=== PATIENT | male | born 1935 | race Caucasian/White ===

== ENCOUNTER → 2017-07-04 | Outpatient (CLI) | payer OTHER ==
[~2017-07-04] MED LIST: ASPI-232; ATEN50TA8 PO; DOXA4TAB2 PO; FERR324T PO; PROTONIX; WARF1TAB PO; ZOCOR
[2017-07-04 14:10] LABS: HEMATOCRIT 43.8 % (42-52); MEAN CELL VOLUME 94.6 fL (80-100); MEAN CORPUSCULAR HEMOGLOBIN 31.1 pg (25-34); MEAN CORPUSCULAR HGB CONC 32.9 g/dl (32-36); MEAN PLATELET VOLUME 12.6 fL (7.4-10.4); PLATELET COUNT 128 K/uL (130-400); RED BLOOD COUNT 4.63 M/uL (4.7-6.1); WHITE BLOOD COUNT 8.09 K/uL (4.8-10.8)
[2017-07-04 14:48] LABS: ALT/SGPT 24 U/L (12-78); AST/SGOT 13 U/L (15-37); BLOOD UREA NITROGEN 12 mg/dl (7-18); BUN/CREATININE RATIO 9.4 (10-20); CALCIUM 8.9 mg/dl (8.5-10.1); CARBON DIOXIDE 29 mmol/L (21-32); CHLORIDE 104 mmol/L (98-107); CREATININE 1.25 mg/dl (0.60-1.40); GLUCOSE 105 mg/dl (70-99); HDL CHOLESTEROL 45 mg/dl; POTASSIUM 4.3 mmol/L (3.5-5.1); SODIUM 138 mmol/L (136-145)
[2017-07-04 14:51] LABS: ALB/GLOB RATIO 1.1 (0.9-2); ALKALINE PHOSPHATASE 72 U/L (45-117); CHOLESTEROL 134 mg/dl (0-200); LDL CHOLESTEROL CALCULATED 39 mg/dl; TRIGLYCERIDES 249 mg/dl (0-150); VERY LOW DENSITY LIPOPROT CALC 50 mg/dl
[2017-07-04 15:00] LABS: ANISOCYTOSIS PRESENT; BASO ABS # 0.07 K/uL (0-0.2); BASOPHIL % 0.9 % (0-2); COMPLETE YES; ECHINOCYTES 1+; EOSINOPHIL % 1.7 %; LYMPH ABS # 0.78 K/uL (1.2-3.4); LYMPHOCYTE % 9.6 %; NEUTROPHILS % 69.6 %; PLT ESTIMATE DECREASED; VARIANT LYM ABS # 1.12 K/uL; VARIANT LYMPHOCYTE % 13.9 %
== END | disposition home or self-care (01) ==
LOC: C.LABBC 10:37
PROVIDERS: ATTEND Internal Medicine
DX: D69.6 Thrombocytopenia, unspecified (principal)

== ENCOUNTER → 2017-08-03 | Outpatient (CLI) | payer OTHER ==
--- NOTE | 2017-08-03 09:42 | DIAGNOSTIC IMAGING REPORT ---
DUPLEX RENAL ARTERY CLINICAL HISTORY: I10 HypertensionRule out renal artery stenosis E X0D E [id number] TECHNIQUE: Ultrasound COMPARISON STUDY: None FINDINGS: Prior left effectively. Right kidney demonstrates unremarkable velocity characteristics as well as vascular impedance characteristics. There is no significant renal arterial stenosis. There are several cysts measuring up to 5 cm involving the right kidney. Has a maximum dimension of 14 cm. No evidence for hydronephrosis. IMPRESSION: 1. Post left nephrectomy. 2. No significant stenosis of the right renal arterial vasculature. 3. Several right renal cyst. The above report was generated using voice recognition software. It may contain grammatical, syntax or spelling errors. Electronically signed by: Denny Peralta M.D. 08/03/2017 9:40 AM Dictated Date/Time: 08/03/2017 9:34 AM
[2017-08-03 14:01] LABS: BLOOD UREA NITROGEN 13 mg/dl (7-18); CALCIUM 8.5 mg/dl (8.5-10.1); CARBON DIOXIDE 31 mmol/L (21-32); CREATININE 1.14 mg/dl (0.60-1.40); GLUCOSE 112 mg/dl (70-99); POTASSIUM 3.8 mmol/L (3.5-5.1); SODIUM 140 mmol/L (136-145)
== END | disposition home or self-care (01) ==
LOC: C.ULTRBC 09:00
PROVIDERS: ATTEND Internal Medicine
DX: I10 Essential (primary) hypertension (principal)

== ENCOUNTER → 2017-09-23 | Outpatient (CLI) | payer OTHER ==
[2017-09-23 13:51] LABS: BLOOD UREA NITROGEN 18 mg/dl (7-18); CALCIUM 8.9 mg/dl (8.5-10.1); CARBON DIOXIDE 27 mmol/L (21-32); CREATININE 1.39 mg/dl (0.60-1.40); GLUCOSE 96 mg/dl (70-99); PHOSPHORUS 3.4 mg/dl (2.5-4.9); POTASSIUM 4.6 mmol/L (3.5-5.1); SODIUM 138 mmol/L (136-145)
== END | disposition home or self-care (01) ==
LOC: C.LABBC 09:29
PROVIDERS: ATTEND Internal Medicine Nephrology
DX: I10 Essential (primary) hypertension (principal)

== ENCOUNTER 2020-05-22 18:04 | Inpatient (IN) ==
[2020-05-22] MEDS ORDERED: MoRPHine SULFATE 2 MG/ML CARP IV PRN ×2 (18:46→22:14)
[2020-05-22] MEDS ORDERED: MoRPHine SULFATE 4 MG/ML 1 ML CARP\\VIAL IV PRN (18:46)
--- NOTE | 2020-05-22 18:53 | Emergency Department Note ---
Impression & Plan Closed hip fracture, Hip pain, High serum chloride, Anemia ED Provider Note NAME: CHARLI CAMPA AGE: 84 SEX: M : 1935 ARRIVES VIA: Walk-In INFORMANT: Patient ED PROVIDER(S): Vic Arredondo DO CHIEF COMPLAINT: Left hip pain. HPI: Patient is an 84-year-old male who presents to ER following mechanical fall which occurred 9 days ago. He was walking and he slipped and fell onto his left hip. He did not his head or neck. He denies any other complaints. Pain is an 8 out of 10. Is worse with movement of the hip. He is fairly comfortable currently. He followed up with his PCP and had x-rays as an outpatient as he really has not been walking. X-rays show left femoral neck fracture. Patient was referred in the ER for further work-up. He has followed up with Oracio watson before in the past for knee replacement. Denies any tingling or numbness. No headache, cough runny nose neck pain. No chest pain shortness of breath nausea vomiting or diarrhea. ROS: See above HPI for pertinent positives & negatives. A total of 10 systems reviewed and were otherwise negative. PAST MEDICAL HISTORY:See Below PAST SURGICAL HISTORY:See Below FAMILY HISTORY:See Below SOCIAL HISTORY:See Below HOME MEDICATIONS:See Below ALLERGIES:See Below VITALS:See Below PHYSICAL EXAMINATION: GENERAL: Sitting up in bed, alert, well appearing, well nourished, no distress, non-toxic EYE EXAM: normal conjunctiva. OROPHARYNX: no exudate, no erythema, lips, buccal mucosa, and tongue normal and mucous membranes are moist NECK: supple, no nuchal rigidity, no adenopathy, non-tender LUNGS: Clear to auscultation. Normal chest wall mechanics HEART: no murmurs, S1 normal and S2 normal ABDOMEN: abdomen soft, non-tender, normo-active bowel sounds, no masses, no rebound or guarding. BACK: Back is symmetrical on inspection and there is no deformity, no midline tenderness, no CVA tenderness. SKIN: no rashes and no bruising UPPER EXTREMITIES: upper extremities are grossly normal. LOWER EXTREMITIES: Flexion-extension of the right hip, knee, ankle, and EHL intact. DP and PT bilaterally are intact 2 out of 4. Tenderness on palpation of left proximal hip. No tenderness on palpation of mid to distal femur, knee, tib-fib ankle or foot. NEURO EXAM: Normal sensorium, cranial nerves II-XII grossly intact, normal speech, no gross weakness of arms, no gross weakness of legs. MEDICAL DECISION MAKING: Patient is a 4-year-old male that presents ER following mechanical fall about 9 days ago. Denies any head or neck pain. Has been unable to walk since then using a walker and toe-touch on the left. IV was established blood work was obtained. X-rays were reviewed as an outpatient which showed a left femoral neck fracture. Labs show no significant leukocytosis and a mild anemia 12. INR was unremarkable. BMP with a high serum chloride. Discussed with Dr. Benito from orthopedics. He requested rapid Covid testing for possible OR tomorrow. Discussed with Dr. Narayanan from the hospitalist will evaluate the patient. He was ordered morphine 2 mg and 4 mg as needed. Triage Nursing notes reviewed. Prior medical records reviewed Vital Signs: reviewed and remarkable for no significant abnormalities Differential diagnosis: Fracture, subluxation, dislocation, contusion, ligamentous injury, neurovascular, compartment syndrome, rhabdomyolysis, as well as other pathologies. ER treatment provided: See below Diagnostics interpreted by me: ECG: Sinus rhythm rate of 75 Normal axis No PVCs Normal QTC No significant change from previous 2007 Cardiac Monitoring: An order was placed for continuous cardiac monitoring. The monitor shows a rate of 80 with sinus rhythm. Laboratory studies: As stated above and show below. Imaging studies: Trays were reviewed as an outpatient which showed a left femoral neck fracture Consultation(s): Discussed with Dr. Narayanan and Dr. Sharath Benito as stated above in [facility] ED COURSE: Procedures: none Critical Care: None Past Med/Surg History Medical History (Updated 05/22/20 @ 20:02 by Vic Arredondo DO) Acquired solitary kidney Arthritis, multiple joint involvement Benign prostatic hyperplasia Chronic kidney disease, stage 3a Hyperlipidemia Hypertension Left knee DJD Nerve sheath tumor Surgical History History of appendectomy History of colonoscopy History of left nephrectomy History of transurethral resection of prostate S/p nephrectomy Status post biopsy of skin Status post right knee replacement Family History Father Atherosclerosis Mother Breast cancer Unknown Coronary heart disease Social History Smoking Status: Never smoker Preferred Language: Pashto Communication Ability: Effective Visual Impairment: Limited Hearing Ability: Normal 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 Feels Safe at Home: Yes Allergies Allergies Allergy/AdvReac Type Severity Reaction Status Date / Time Sulfa (Sulfonamide Allergy Severe SKIN Verified 05/22/20 19:49 Antibiotics) NECROSIS TO SULFA OINTMENT Home Meds Home Medications Medication Instructions Recorded Confirmed aspirin 81 mg tablet 81 mg PO DAILY tab 04/17/19 05/22/20 acetaminophen 650 mg 650 mg PO TID tab 05/22/20 05/22/20 tablet,extended release aspirin [Aspirin Low Dose] 81 mg PO QAM 05/22/20 05/22/20 simvastatin 40 mg PO HS 05/22/20 05/22/20 Previous Rx's Medication Instructions Recorded doxazosin 4 mg tablet 4 mg PO DAILY #90 tab 09/25/19 carvedilol 12.5 mg tablet 12.5 mg PO BID #180 tab 12/27/19 telmisartan 80 mg tablet 80 mg PO DAILY #90 tab 12/31/19 diazepam 10 mg tablet 10 mg PO DAILY PRN #30 tab 03/07/20 Results & Data (ED) Vital Signs Vital Signs - 24 hr 05/22/20 18:13 Temperature 37.1 C Temperature Source Oral Pulse Rate 83 Respiratory Rate 18 Respiratory Effort / Characteristics Non-Labored Spontaneous Respiratory Depth Normal Respiratory Pattern Regular Blood Pressure 125/83 Blood Pressure Mean 97 Blood Pressure Position Sitting Pulse Oximetry 96 Oxygen Delivery Method Room Air Sepsis Recent Fever Within 48 Hours No Sepsis New/Unexplained Change in Mental Status N/A Sepsis Action Taken by Nursing No Action Required Laboratory Data Result diagrams: 05/22/20 19:07 05/22/20 19:07 Lab Results 05/22/20 05/22/20 05/22/20 Range/Units 19:07 19:07 19:07 WBC 8.43 (4.8-10.8) K/uL RBC 3.89 L (4.7-6.1) M/uL Hgb 12.3 L (14.0-18.0) g/dL Hct 37.7 L (42-52) % MCV 96.9 (80-100) fL MCH 31.6 (25-34) pg MCHC 32.6 (32-36) g/dL RDW Std Deviation 51.7 H (36.4-46.3) fL RDW Coeff of Lauren 14.6 H (11.5-14.5) % Plt Count 130 (130-400) K/uL MPV 11.8 H (7.4-10.4) fL Immature Gran % (Auto) 0.2 % Neut % (Auto) 66.2 % Lymph % (Auto) 23.7 % [place] % (Auto) 8.4 % Eos % (Auto) 1.1 % Baso % (Auto) 0.4 % Neut # (Auto) 5.58 (1.4-6.5) K/uL Lymph # (Auto) 2.00 (1.2-3.4) K/uL [place] # (Auto) 0.71 H (0.11-0.59) K/uL Eos # (Auto) 0.09 (0-0.5) K/uL Baso # (Auto) 0.03 (0-0.2) K/uL Immature Gran # (Auto) 0.02 (0.00-0.02) K/uL PT 10.9 (9.0-12.0) Seconds INR 1.0 (0.9-1.1) APTT 26.8 (21.0-31.0) Seconds PTT Ratio 1.0 Sodium 140 (136-145) mmol/L Potassium 4.4 (3.5-5.1) mmol/L Chloride 109 H (98-107) mmol/L Carbon Dioxide 24 (21-32) mmol/L Anion Gap 7.0 (3-11) BUN 29 H (7-18) mg/dl Creatinine 1.17 (0.6-1.4) mg/dl Est Cr Clr Drug Dosing 43.8 ml/min Est GFR ( Amer) 65.0 Est GFR (Non-Af Amer) 56.1 BUN/Creatinine Ratio 24.7 H (10-20) Glucose 93 (70-99) mg/dl Calcium 8.7 (8.5-10.1) mg/dl Discharge Plan Visit Data Chief Complaint: Hip Pain Stated Complaint: LEFT HIP FRACTURE ED Provider: Vic Arredondo Discharge Problem: Closed hip fracture, Hip pain, High serum chloride, Anemia Forms [facility] Pres[facility] Prescriptions: No Action doxazosin 4 mg tablet 4 mg PO DAILY Qty: 90 RF: 3 carvedilol 12.5 mg tablet 12.5 mg PO BID Qty: 180 RF: 3 telmisartan 80 mg tablet 80 mg PO DAILY Qty: 90 RF: 3 diazepam 10 mg tablet 10 mg PO DAILY PRN (Reason: muscle spasm) Qty: 30 RF: 0 aspirin 81 mg tablet 81 mg PO DAILY RF: 0 acetaminophen [Tylenol Arthritis Pain] 650 mg tablet extended release 650 mg PO TID RF: 0 simvastatin 40 mg tablet 40 mg PO HS RF: 0 aspirin [Aspirin Low Dose] 81 mg Tablet,Delayed Release (Dr/Ec) 81 mg PO QAM RF: 0 Discharge Problem: Closed hip fracture Qualifiers: Encounter type: initial encounter Laterality: left Qualified Code(s): S72.002A - Fracture of unspecified part of neck of left femur, initial encounter for c losed fracture Anemia Qualifiers: Anemia type: unspecified type Qualified Code(s): D64.9 - Anemia, unspecified
[2020-05-22 19:21] LABS: Basophils # (auto) 0.03 K/uL (0-0.2); Basophils % (auto) 0.4 %; Eosinophils # (auto) 0.09 K/uL (0-0.5); Eosinophils % (auto) 1.1 %; Hematocrit (blood only) 37.7 % (42-52); Hemoglobin 12.3 g/dL (14.0-18.0); Immature Granulocytes # (auto) 0.02 K/uL (0.00-0.02); Immature Granulocytes % (auto) 0.2 %; Lymphocytes % (auto) 23.7 %; Mean Corpuscular Hemoglobin 31.6 pg (25-34); Mean Corpuscular Hgb Conc 32.6 g/dL (32-36); Mean Corpuscular Volume 96.9 fL (80-100); Mean Platelet Volume 11.8 fL (7.4-10.4); Monocytes # (auto) 0.71 K/uL (0.11-0.59); Monocytes % (auto) 8.4 %; Neutrophils # (auto) 5.58 K/uL (1.4-6.5); Neutrophils % (auto) 66.2 %; Platelet Count 130 K/uL (130-400); RDW Coefficient of Variation 14.6 % (11.5-14.5); RDW Standard Deviation 51.7 fL (36.4-46.3); Red Blood Count 3.89 M/uL (4.7-6.1); White Blood Count 8.43 K/uL (4.8-10.8)
[2020-05-22 19:33] LABS: Partial Thromboplastin Time 26.8 Seconds (21.0-31.0); Prothrombin Time 10.9 Seconds (9.0-12.0)
[2020-05-22 19:38] LABS: BUN Creatinine Ratio 24.7 (10-20); Calcium 8.7 mg/dl (8.5-10.1); Creatinine Clr Calc Pharmacy 43.8 ml/min; Est GFR (Non-African American) 56.1; Potassium 4.4 mmol/L (3.5-5.1)
--- NOTE | 2020-05-22 20:05 | History & Physical Report ---
Date of Service May 22, 2020 Assessment & Plan (1) Closed hip fracture: 84yo C male s/p mechanical fall 9 days ago resulting in impacted left femoral neck fracture. Patient NV intact, pain is well controlled at present. Patient with no active cardiac disease, no history of CHF or arrhythmia. He has adequate functional status and able to perform 4 METS of activity without difficulty. No prior complications with surgery or anesthesia. Per RSRI criteria patient is medically optimized to proceed with surgery. No additional testing required at this time. -Admit to medical floor -NPO after midnight -Orthopedic surgery consultation appreciated - possible OR in AM -SARS-CoV-2 NEGATIVE today -Holding ASA (last taken 05/22/20 AM) -Holding Telmisartan to avoid intraoperative hypotension - may resume post- operatively -Oxycodone and Morphine as needed for pain -Zofran as needed for nausea -Colace/Dulcolax PRN constipation Present on Admission?: Yes (2) Benign prostatic hyperplasia: Chronic -Continue Doxasozin Present on Admission?: Yes (3) Chronic kidney disease, stage 3a: BUN and Cr near baseline. Electroltyes WNL -Avoid nephrotoxic agents -Monitor BUN/Cr/Electrolytes and UOP Present on Admission?: Yes (4) Hyperlipidemia: Chronic -Continue Simvastatin Present on Admission?: Yes (5) Hypertension: Blood pressure elevated -Pain control as above -Continue Carvedilol -Continue to monitor F/E/N - LR at 100mL/hr x 2 liters Ppx - SCDs Code - Full Dispo - Admit to medical floor Present on Admission?: Yes History of Present Illness Chief Complaint: left hip fracture Primary Care Provider: Steve Pressley MD Ludin Shea is a pleasant 84yo male with history of HTN, HLP, CKD with solitary kidney presenting with left hip fracture. Patient had a mechanical fall in his home 9 days ago. No head trauma, no LOC. He landed on his left hip. He reports ongoing pain and difficulty with ambulation since then. He has been requiring a walker at home. Pain progressively worsening over the last 9 days - he was seen by his PCP this afternoon and had imaging which revealed an impacted left femoral neck fracture, no dislocation. He has been taking Tylenol 1800mg po daily for pain management at home. Patient states that pain is fairly well controlled at present. He has full sensation and mobility of his LLE. No fevers/chills/CP/palpitations/cough/SOB/abdominal pain/nausea/vomiting/diarrhea/constipation. No concerns for Covid-19 exposure. ER Course: Morphine 4mg, 2mg Allergies Allergy/AdvReac Type Severity Reaction Status Date / Time Sulfa (Sulfonamide Allergy Severe SKIN Verified 05/22/20 19:49 Antibiotics) NECROSIS TO SULFA OINTMENT Home Medications Home Medications Medication Instructions Recorded Confirmed Type carvedilol 12.5 mg tablet 12.5 mg PO BID #180 tab 12/27/19 05/22/20 Rx acetaminophen 650 mg 650 mg PO TID tab 05/22/20 05/22/20 History tablet,extended release aspirin [Aspirin Low Dose] 81 mg PO QAM 05/22/20 05/22/20 History diazepam 10 mg PO DAILY PRN 05/22/20 05/22/20 History doxazosin 4 mg PO HS 05/22/20 05/22/20 History simvastatin 40 mg PO HS 05/22/20 05/22/20 History telmisartan 80 mg PO QAM 05/22/20 05/22/20 History Past Med/Surg History Medical History (Updated 05/22/20 @ 22:22 by Valencia Narayanan DO) Acquired solitary kidney Arthritis, multiple joint involvement Benign prostatic hyperplasia Chronic kidney disease, stage 3a Hyperlipidemia Hypertension Left knee DJD Nerve sheath tumor Surgical History History of appendectomy History of colonoscopy History of left nephrectomy History of transurethral resection of prostate S/p nephrectomy Status post biopsy of skin Status post right knee replacement Family History Father Atherosclerosis Mother Breast cancer Unknown Coronary heart disease Social History Smoking Status: Never smoker Preferred Language: Malay Communication Ability: Effective Visual Impairment: Limited Hearing Ability: Normal 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 occupational status: retired Feels Safe at Home: Yes Review of Systems Review of Systems: All systems reviewed & are unremarkable except as noted in HPI & below Physical Exam Physical Exam: General: patient resting comfortably, NAD, non-toxic in appearance, AA&O x 4 Skin: warm, dry, intact, no rashes or lesions HEENT: NC/AT, PERRL, EOMI, anicteric sclera, conjunctiva without injection, e xternal ear normal to inspection and nontender, nares patent, moist mucus membranes, dentition intact, no oropharyngeal lesions, neck supple, trachea midline, no LAD, no thyromegaly, no JVD Heart: +S1/S2, regular, no m/r/g Lungs: equal air entry bilaterally, no rales/rhonchi/wheezes Abd: +BS, soft, NT/ND, no masses/organomegaly/ascites Ext: warm, 2+ pulses in UE/LE bilaterally, no clubbing/cyanosis or edema, LLE propped with pillow Neuro: nonfocal, patient AA&O x 4, speech intact, no facial droop, moving all extremities on command with equal strength 5/5 Results & Data Results & Data ([facility]) Vital Signs (Past 12 Hours) Vital Signs Temp Pulse Resp BP Pulse Ox 05/22/20 18:13 37.1 C 83 18 125/83 96 Laboratory Results Lab Results 05/22/20 05/22/20 05/22/20 Range/Units 19:06 19:07 19:07 WBC 8.43 (4.8-10.8) K/uL RBC 3.89 L (4.7-6.1) M/uL Hgb 12.3 L (14.0-18.0) g/dL Hct 37.7 L (42-52) % MCV 96.9 (80-100) fL MCH 31.6 (25-34) pg MCHC 32.6 (32-36) g/dL RDW Std Deviation 51.7 H (36.4-46.3) fL RDW Coeff of Lauren 14.6 H (11.5-14.5) % Plt Count 130 (130-400) K/uL MPV 11.8 H (7.4-10.4) fL Immature Gran % (Auto) 0.2 % Neut % (Auto) 66.2 % Lymph % (Auto) 23.7 % [place] % (Auto) 8.4 % Eos % (Auto) 1.1 % Baso % (Auto) 0.4 % Neut # (Auto) 5.58 (1.4-6.5) K/uL Lymph # (Auto) 2.00 (1.2-3.4) K/uL [place] # (Auto) 0.71 H (0.11-0.59) K/uL Eos # (Auto) 0.09 (0-0.5) K/uL Baso # (Auto) 0.03 (0-0.2) K/uL Immature Gran # (Auto) 0.02 (0.00-0.02) K/uL PT 10.9 (9.0-12.0) Seconds INR 1.0 (0.9-1.1) APTT 26.8 (21.0-31.0) Seconds PTT Ratio 1.0 Sodium (136-145) mmol/L Potassium (3.5-5.1) mmol/L Chloride (98-107) mmol/L Carbon Dioxide (21-32) mmol/L Anion Gap (3-11) BUN (7-18) mg/dl Creatinine (0.6-1.4) mg/dl Est Cr Clr Drug Dosing ml/min Est GFR ( Amer) Est GFR (Non-Af Amer) BUN/Creatinine Ratio (-20) Glucose (70-99) mg/dl Calcium (8.5-10.1) mg/dl COVID-19 Eval Order SARS-CoV-2, RNA, NAAT (NEGATIVE) Blood Type O Positive Antibody Screen NEGATIVE 05/22/20 05/22/20 05/22/20 Range/Units 19:07 19:37 19:37 WBC (4.8-10.8) K/uL RBC (4.7-6.1) M/uL Hgb (14.0-18.0) g/dL Hct (42-52) % MCV (80-100) fL MCH (25-34) pg MCHC (32-36) g/dL RDW Std Deviation (36.4-46.3) fL RDW Coeff of Lauren (11.5-14.5) % Plt Count (130-400) K/uL MPV (7.4-10.4) fL Immature Gran % (Auto) % Neut % (Auto) % Lymph % (Auto) % [place] % (Auto) % Eos % (Auto) % Baso % (Auto) % Neut # (Auto) (1.4-6.5) K/uL Lymph # (Auto) (1.2-3.4) K/uL [place] # (Auto) (0.11-0.59) K/uL Eos # (Auto) (0-0.5) K/uL Baso # (Auto) (0-0.2) K/uL Immature Gran # (Auto) (0.00-0.02) K/uL PT (9.0-12.0) Seconds INR (0.9-1.1) APTT (21.0-31.0) Seconds PTT Ratio Sodium 140 (136-145) mmol/L Potassium 4.4 (3.5-5.1) mmol/L Chloride 109 H (98-107) mmol/L Carbon Dioxide 24 (21-32) mmol/L Anion Gap 7.0 (3-11) BUN 29 H (7-18) mg/dl Creatinine 1.17 (0.6-1.4) mg/dl Est Cr Clr Drug Dosing 43.8 ml/min Est GFR ( Amer) 65.0 Est GFR (Non-Af Amer) 56.1 BUN/Creatinine Ratio 24.7 H (10-20) Glucose 93 (70-99) mg/dl Calcium 8.7 (8.5-10.1) mg/dl COVID-19 Eval Order Covid19 [facility] SARS-CoV-2, RNA, NAAT NEGATIVE (NEGATIVE) Blood Type Antibody Screen Diagnostic Findings XR knee LT 1 or 2V routine, XR hip LT 2V w pelvis, XR femur LT 2V routine CLINICAL HISTORY: W19.XXXA - Unspecified fall, initial encounter. Left hip pain. Left leg pain. Left knee pain. COMPARISON STUDY: Pelvis 04/30/2008. FINDINGS: There is a slightly impacted transverse fracture within the left femoral neck. The pelvis and right hip are intact. No dislocation. No fractures within the mid to distal left femur or left knee. No knee effusion. Vascular calcifications are noted. Moderate tricompartmental osteoarthritis within the left knee. The bones are osteopenic. IMPRESSION: 1. Impacted left femoral neck fracture. No dislocation. 2. No fractures within the right hip, distal left femur, or left knee. ACT 112: Negative or not required by law. ECG Additional Comments: EKG with NSR at 75, normal axis, VJ=110, QRS=86, VKt=885, no acute ischemic changes Code Status & VTE Plan Code Status Full Code VTE Prophylaxis Plan VTE Prophylaxis will be ordered: Yes PG Care Time/CCT Total # of Minutes Spent Total Time Spent with Patient: Total time spent is greater than 50% in coordination of care (as documented) at patient's floor/unit and/or counseling patient: Coding Level of Care Code 36162 Initial Inpt Care Lvl 3 Diagnoses Closed hip fracture S72.002A Encounter type: initial encounter Laterality: left Benign prostatic hyperplasia N40.0 Lower urinary tract symptom presence: unspecified whether lower urinary tract symptoms present Chronic kidney disease, stage 3a N18.3 Hyperlipidemia E78.00 Hyperlipidemia type: pure hypercholesterolemia Hypertension I10 Hypertension type: essential hypertension (1) Closed hip fracture Encounter type: initial encounter Laterality: left Qualified Code(s): S72.002A - Fracture of unspecified part of neck of left femur, initial encounter for closed fracture (2) Benign prostatic hyperplasia Lower urinary tract symptom presence: unspecified whether lower urinary tract symptoms present Qualified Code(s): N40.0 - Benign prostatic hyperplasia wit hout lower urinary tract symptoms (3) Hyperlipidemia Hyperlipidemia type: pure hypercholesterolemia Qualified Code(s): E78.00 - Pure hypercholesterolemia, unspecified (4) Hypertension Hypertension type: essential hypertension Qualified Code(s): I10 - Essential (primary) hypertension
[2020-05-22] MEDS ORDERED: bisacodyL 10 MG SUPP PR PRN (22:14)
[2020-05-22] MEDS ORDERED: MAGNESIUM HYDROXIDE SUSP 30 ML UDC PO PRN (22:14)
[2020-05-22] MEDS ORDERED: ONDANSETRON INJ 2 MG/ML 2 ML VIAL IV PRN (22:14)
[2020-05-22] MEDS ORDERED: NALOXONE HCL 0.4 MG/1 ML VIAL/CARP IV PRN (22:14)
[2020-05-22] MEDS ORDERED: hydrALAZINE HCL 20 MG/ML VIAL IV PRN (22:14)
[2020-05-22] MEDS ORDERED: oxyCODONE HCL IR 5 MG TAB (IMMEDIATE RELEASE) PO PRN (22:14)
[2020-05-22] MEDS ORDERED: diazePAM 5 MG TABLET PO PRN (22:14)
[2020-05-22] MEDS ORDERED: MoRPHine SULFATE 2 MG/ML CARP ONE (22:22)
[2020-05-22] MEDS ORDERED: hydrALAZINE HCL 20 MG/ML VIAL ONE (22:22)
[2020-05-22] MEDS: LACTATED RINGER'S 1,000 ML IV SCH (22:59)
[2020-05-22] MEDS: carvediloL 12.5 MG TAB PO SCH (23:00)
[2020-05-22] MEDS: DOCUSATE SODIUM/SENNA 50/8.6MG TAB PO SCH (23:00)
--- NOTE | 2020-05-23 00:07 | Orthopedic Consultation ---
Date of Consultation May 22, 2020 Assessment & Plan (1) Closed hip fracture: Displaced FN fracture. Given age, comorbidities, and fracture pattern, recommend surgical treatment with a bipolar hemiarthroplasty. Discussed risk and benefits of hemiarthroplasty for fracture at the bedside with present. Discussed that risks include but are not limited to infection, NV injury, bleeding, implant complications, leg length discrepancies, hip instability, blood clots, pain syndromes, need for transfusions, and complications related to anesthesia. They both asked appropriate questions, demonstrated a good understanding, and were agreeable to proceed with surgery. Appreciate hospitalist admission and clearance NPO at midnight Bedrest Consent is on chart Posted for surgery, likely tomorrow afternoon by Dr. Narayanan or myself. Present on Admission?: Yes History of Present Illness Attending Physician: Valencia Narayanan, History of Present Illness 84 yo M reports that he stumbled at home and fell onto his left hip 9 days ago, resulting in immediate pain. He subsequently had difficulty with ambulation and was dependent on a walker. When pain did not improve, he was evaluated by his primary care physician, and subsequently referred to the ED for a left femoral neck fracture. He denies antecedent hip pain. He has had a R TKA and considering L TKA. He considers himself relatively healthy and active as a community ambulator without assist device. Allergies Allergy/AdvReac Type Severity Reaction Status Date / Time Sulfa (Sulfonamide Allergy Severe SKIN Verified 05/22/20 19:49 Antibiotics) NECROSIS TO SULFA OINTMENT Home Medications Home Medications Medication Instructions Recorded Confirmed Type carvedilol 12.5 mg tablet 12.5 mg PO BID #180 tab 12/27/19 05/22/20 Rx acetaminophen 650 mg 650 mg PO TID tab 05/22/20 05/22/20 History tablet,extended release aspirin [Aspirin Low Dose] 81 mg PO QAM 05/22/20 05/22/20 History diazepam 10 mg PO DAILY PRN 05/22/20 05/22/20 History doxazosin 4 mg PO HS 05/22/20 05/22/20 History simvastatin 40 mg PO HS 05/22/20 05/22/20 History telmisartan 80 mg PO QAM 05/22/20 05/22/20 History Patient History Medical History Acquired solitary kidney Arthritis, multiple joint involvement Benign prostatic hyperplasia Chronic kidney disease, stage 3a Hyperlipidemia Hypertension Left knee DJD Nerve sheath tumor Surgical History History of appendectomy History of colonoscopy History of left nephrectomy History of transurethral resection of prostate S/p nephrectomy Status post biopsy of skin Status post right knee replacement Family History Father Atherosclerosis Mother Breast cancer Unknown Coronary heart disease Social History Smoking Status: Never smoker Hx Alcohol Use: No Hx Substance Use: No Preferred Language: Spanish Communication Ability: Effective Visual Impairment: Limited Hearing Ability: Normal Water Project Engineer Required: No Beliefs That Will Affect Care: None Current Living Situation: Spouse current occupational status: retired Feels Safe at Home: Yes Assistive Devices: Walker Review of Systems Review of Systems: All systems reviewed & are unremarkable except as noted in HPI & below Respiratory: no dyspnea and no pain on inspiration Cardiovascular: no chest pain and no lightheadedness Gastrointestinal: no nausea and no vomiting Musculoskeletal: no back pain and no neck pain Integumentary: no rash and no lesions Neurologic: no numbness and no paresthesia Physical Exam 2 Physical Exam: LLE: laying with LLE positioned on pillow and ER'd. +DF/PF/EHL. DNVI. Constitutional: well developed and well nourished; no acute distress and not intoxicated appearing ENMT: external ear and nose normal, oropharynx normal Respiratory: normal respiratory effort; no respiratory distress Cardiovascular: Extremities: normal capillary refill; no edema Skin: no rashes, warm and dry Psychiatric: A+Ox3, euthymic affect Results & Data ([facility]) Vital Signs (Past 12 Hours) Vital Signs Temp Pulse Pulse Resp BP BP Pulse Ox 05/22/20 23:31 37.4 C 77 20 209/122 H 96 05/22/20 23:00 37.1 C 83 20 149/85 H 96 05/22/20 21:10 91 H 15 05/22/20 21:00 79 13 206/113 H 97 05/22/20 20:50 79 19 05/22/20 20:40 77 18 05/22/20 20:30 81 11 L 05/22/20 20:20 81 12 05/22/20 20:10 80 14 05/22/20 20:01 80 13 187/117 H 95 05/22/20 20:00 80 05/22/20 19:50 79 05/22/20 19:45 82 20 05/22/20 18:13 37.1 C 83 18 125/83 96 Laboratory Results H & H 05/22/20 Range/Units 19:07 Hgb 12.3 L (14.0-18.0) g/dL Hct 37.7 L (42-52) % Coagulation 05/22/20 Range/Units 19:07 INR 1.0 (0.9-1.1) Diagnostic Findings Radiographs reveal a displaced (Grade 3) femoral neck fracture with comminution. PG Care Time/CCT Total # of Minutes Spent Total Time Spent with Patient: Total time spent is greater than 50% in coordination of care (as documented) at patient's floor/unit and/or counseling patient: Coding Level of Care Code 63044 Initial Inpt Care Lvl 3 Diagnoses Closed hip fracture S72.002A Encounter type: initial encounter Laterality: left (1) Closed hip fracture Encounter type: initial encounter Laterality: left Qualified Code(s): S72.002A - Fracture of unspecified part of neck of left femur, initial encounter for closed fracture
[2020-05-23 04:45] LABS: Appearance Urine Clear (Clear); Bacteria Urine Automated Negative (Negative); Bilirubin Urine Negative (Negative); Blood Urine 1+ (Negative); Cast Urine Automated 0 /lpf (0-5); Color Urine Yellow; Glucose Urine UA Negative (Negative); Ketones Urine Negative (Negative); Leukocyte Esterase Urine Negative (Negative); Nitrite Urine Negative (Negative); Protein Urine Negative (Negative); Specific Gravity Urine 1.019 (1.000-1.030); Urobilinogen Urine Negative (Negative); pH Urine 6.5 (4.5-7.5)
[2020-05-23] MEDS: ACETAMINOPHEN 325 MG TAB PO SCH ×2 (07:36→13:52)
[2020-05-23] MEDS: carvediloL 12.5 MG TAB PO SCH ×2 (07:36→20:49)
[2020-05-23] MEDS: LACTATED RINGER'S 1,000 ML IV SCH ×2 (07:38→21:00)
--- NOTE | 2020-05-23 08:07 | Progress Notes ---
DATE: 05/23/2020 SUBJECTIVE: An 84-year-old gentleman admitted with a displaced left femoral neck fracture, now about 10 days old. This all sustained from a fall. No preexisting hip pain. No other complaints. Anxious to get his hip fixed. OBJECTIVE: VITAL SIGNS: Temperature 37.4. Vital signs stable. GENERAL: Shows a pleasant elderly male. He is lying in bed and looks pretty comfortable. EXTREMITIES: Examination of the left leg does reveal a bruise over the lateral side of his hip. Not a lot of swelling. He does have some slight external rotation of his leg. He has got varus deformity to his knee, but no knee effusion. He is neurologically intact. X-RAYS: Revealed displaced femoral neck fracture. No underlying hip arthritis. ASSESSMENT: An 84-year-old gentleman status post a fall 10 days ago with a displaced femoral neck fracture. No underlying arthritis. This is best treated with a hemiarthroplasty. PLAN: We discussed treatment options. We are going to proceed with a left cemented bipolar hip arthroplasty. The risks and benefits of this procedure were explained to the patient. He is fully aware and understands and would like to proceed. We will plan on doing this later this afternoon.
--- NOTE | 2020-05-23 08:39 | Electrocardiogram Report ---
Test Reason : Blood Pressure : / mmHG Vent. Rate : 075 BPM Atrial Rate : 075 BPM P-R Int : 174 ms QRS Dur : 086 ms QT Int : 406 ms P-R-T Axes : 022 013 044 degrees QTc Int : 453 ms Poor data quality, interpretation may be adversely affected Normal sinus rhythm Normal ECG When compared with ECG of 20-JUN-2008 14:37, No significant change was found Confirmed by Wie Monroe ([id number]) on 05/23/2020 8:39:04 AM Referred By: REFERRED SELF Confirmed By:Wei Monroe
[2020-05-23 11:38] LABS: Hematocrit (blood only) 35.1 % (42-52); Hemoglobin 11.5 g/dL (14.0-18.0); Mean Corpuscular Hemoglobin 31.8 pg (25-34); Mean Corpuscular Hgb Conc 32.8 g/dL (32-36); Mean Platelet Volume 11.3 fL (7.4-10.4); Platelet Count 130 K/uL (130-400); RDW Coefficient of Variation 14.2 % (11.5-14.5); RDW Standard Deviation 50.6 fL (36.4-46.3); Red Blood Count 3.62 M/uL (4.7-6.1); White Blood Count 7.31 K/uL (4.8-10.8)
[2020-05-23 12:10] LABS: BUN Creatinine Ratio 20.3 (10-20); Calcium 8.6 mg/dl (8.5-10.1); Creatinine Clr Calc Pharmacy 46.6 ml/min; Est GFR (African American) 70.1; Est GFR (Non-African American) 60.5; Magnesium 2.3 mg/dl (1.8-2.4); Potassium 4.3 mmol/L (3.5-5.1)
[2020-05-23] MEDS ORDERED: PROPOFOL IV EMULSION 10 MG/ML 20 ML VIAL IV ONE (12:30)
[2020-05-23] MEDS ORDERED: fentaNYL citrate 100 MCG/2 ML VIAL ONE ×2 (12:30→14:27)
[2020-05-23] MEDS ORDERED: MIDAZOLAM HCL 1 MG/ML 2ML VIAL ONE (12:30)
[2020-05-23] MEDS ORDERED: BACITRACIN INJ 50,000 UNIT VIAL ONE (12:34)
[2020-05-23] MEDS ORDERED: EPINEPHrine INJ 1 MG/ML AMP ONE (12:34)
[2020-05-23] MEDS ORDERED: BUPIVACAINE 0.5 % 5 MG/1 ML MPF 30ML VIAL ONE (12:34)
--- NOTE | 2020-05-23 12:36 | Anesthesiology Consultation ---
Date of Service May 23, 2020 Assessment & Plan Chart Review Chart Review: Acceptable Risk for Surgery and Patient NOT seen in Pre Admission Testing Consults Requested none ASA ASA3 Proposed Anesthesia Anesthesia Type: MAC Spinal History Surgery Operation Date: 05/23/20 07:05 Proposed Procedures p Hemiarthroplasty Hip Left Doug Narayanan MD Height/Weight Height: 5 ft 8 in Weight: 71.4 kg Allergies Allergy/AdvReac Type Severity Reaction Status Date / Time Sulfa (Sulfonamide Allergy Severe SKIN Verified 05/22/20 19:49 Antibiotics) NECROSIS TO SULFA OINTMENT Medications Home Medications Medication Instructions Recorded Confirmed Last Taken carvedilol 12.5 mg tablet 12.5 mg PO BID #180 tab 12/27/19 05/22/20 05/22/20 AM DOSE acetaminophen 650 mg 650 mg PO TID tab 05/22/20 05/22/20 05/22/20 tablet,extended release AM DOSE aspirin [Aspirin Low Dose] 81 mg PO QAM 05/22/20 05/22/20 05/22/20 diazepam 10 mg PO DAILY PRN 05/22/20 05/22/20 Unknown doxazosin 4 mg PO HS 05/22/20 05/22/20 05/21/20 simvastatin 40 mg PO HS 05/22/20 05/22/20 05/21/20 telmisartan 80 mg PO QAM 05/22/20 05/22/20 05/22/20 Active Medications Generic Name Dose Route Start Last Admin Trade Name Freq PRN Reason Stop Dose Admin Acetaminophen 325 mg 05/23/20 09:00 05/23/20 07:36 Acetaminophen 325 Mg Tab PO 06/22/20 08:59 325 mg TID CHUCK Administration Carvedilol 12.5 mg 05/22/20 22:15 05/23/20 07:36 Carvedilol 12.5 Mg Tab PO 06/21/20 22:14 12.5 mg BID CHUCK Administration Lactated Ringer's 1,000 mls @ 100 mls/hr 05/22/20 22:14 05/23/20 07:38 Lr IV 05/23/20 18:13 100 mls/hr .Q10H CHUCK Administration Senna/Docusate Sodium 2 tab 05/22/20 23:00 05/22/20 23:00 Docusate Sodium/Senna 50/8.6mg Tab PO 06/21/20 22:59 2 tab HS CHUCK Administration Past Medical History Medical History Acquired solitary kidney Arthritis, multiple joint involvement Benign prostatic hyperplasia Chronic kidney disease, stage 3a Hyperlipidemia Hypertension Left knee DJD Nerve sheath tumor Exercise / Class Metabolic Activity III < 4 Walking/Shop/Light housework Past Family History Family History Father Atherosclerosis Mother Breast cancer Unknown Coronary heart disease Past Surgical History Surgical History History of appendectomy History of colonoscopy History of left nephrectomy History of transurethral resection of prostate S/p nephrectomy Status post biopsy of skin Status post right knee replacement Past Anesthesia History No Hx of Anesthesia Complications and No Family Hx of Anesthesia Complications History of PONV No Hx of PONV and No Hx of Motion Sickness Social History Smoking Status: Never smoker Hx Alcohol Use: No Hx Substance Use: No Physical Exam Vital Signs Last Vital Signs Temp 37.4 C 05/23/20 07:00 Pulse 73 05/23/20 07:00 Resp 18 05/23/20 07:00 BP 146/88 H 05/23/20 07:00 Pulse Ox 96 05/23/20 07:00 Testing Laboratory Results 05/23/20 11:21 05/23/20 11:21 PT 10.9 Seconds (9.0-12.0) 05/22/20 19:07 INR 1.0 (0.9-1.1) 05/22/20 19:07 APTT 26.8 Seconds (21.0-31.0) 05/22/20 19:07 Urine Color Yellow 05/23/20 04:35 Urine Appearance Clear (Clear) 05/23/20 04:35 Urine pH 6.5 (4.5-7.5) 05/23/20 04:35 Ur Specific [place] 1.019 (1.000-1.030) 05/23/20 04:35 Urine Protein Negative (Negative) 05/23/20 04:35 Urine Glucose (UA) Negative (Negative) 05/23/20 04:35 Urine Ketones Negative (Negative) 05/23/20 04:35 Urine Nitrite Negative (Negative) 05/23/20 04:35 Ur Leukocyte Esterase Negative (Negative) 05/23/20 04:35 Urine WBC (Auto) 1-5 /hpf (0-5) 05/23/20 04:35 Urine RBC (Auto) 5-10 /hpf (0-4) H 05/23/20 04:35 U Hyaline Cast (Auto) 0 /lpf (0-5) 05/23/20 04:35 U Epithel Cells (Auto) 10-20 /lpf (0-5) H 05/23/20 04:35 Urine Bacteria (Auto) Negative (Negative) 05/23/20 04:35 Blood Type O Positive 05/22/20 19:06 Antibody Screen NEGATIVE 05/22/20 19:06 Electrocardiogram Date: 05/22/20 Findings: + NSR @ (at 73)
[2020-05-23] MEDS ORDERED: LABETALOL HCL IV 5 MG/ML 20ML IV PRN (13:59)
[2020-05-23] MEDS ORDERED: ePHEDrine sulfate 50 MG/ML AMP IV PRN (13:59)
[2020-05-23] MEDS ORDERED: ATROPINE SULFATE 0.1 MG/ML 10ML SYR IV PRN (13:59)
[2020-05-23] MEDS ORDERED: NALOXONE HCL 0.4 MG/1 ML VIAL/CARP IV PRN ×2 (13:59→16:54)
[2020-05-23] MEDS ORDERED: FLUMAZENIL 0.1 MG/1 ML 10 ML VIAL IV PRN (13:59)
[2020-05-23] MEDS ORDERED: fentaNYL citrate 100 MCG/2 ML VIAL IV PRN (13:59)
[2020-05-23] MEDS ORDERED: PROMETHAZINE HCL 12.5 MG in SODIUM CHLORIDE 0.9% 50 ML IV PRN (13:59)
[2020-05-23] MEDS ORDERED: ONDANSETRON INJ 2 MG/ML 2 ML VIAL IV PRN (13:59)
[2020-05-23] MEDS ORDERED: LIDOCAINE HCL 2% 2 ML VIAL/AMP(20MG/ML) INFIL ONE (14:04)
[2020-05-23] MEDS ORDERED: ePHEDrine sulfate 50 MG/ML SYR ONE (14:04)
[2020-05-23] MEDS ORDERED: PHENYLEPHRINE 100MCG/ML 5ML SYR ONE (14:04)
[2020-05-23] MEDS ORDERED: SUCCINYLCHOLINE CHLORIDE 20 MG/ML 10 ML VIAL IV ONE (14:04)
[2020-05-23] MEDS ORDERED: SODIUM CHLORIDE 0.9% INJ 10 ML VIAL ONE (14:04)
[2020-05-23] MEDS ORDERED: CISATRACURIUM BESYLATE IV SOLN 2 MG/ML 10 ML VIAL IV ONE (14:04)
[2020-05-23] MEDS ORDERED: GLYCOPYRROLATE 0.2 MG/ML VIAL ONE ×2 (14:08→15:21)
[2020-05-23] MEDS ORDERED: ATROPINE SO4 1 MG/ML 1ML VIAL ONE (14:40)
[2020-05-23] MEDS ORDERED: NEOSTIGMINE METHYLSULFATE 5 MG/5 ML SYR ONE (15:21)
[2020-05-23] MEDS ORDERED: ONDANSETRON INJ 2 MG/ML 2 ML VIAL ONE (15:29)
--- NOTE | 2020-05-23 15:30 | Post Operative Brief Note ---
PG Immediate Post Op with CF Date of Surgery May 23, 2020 Pre & Post Diagnosis Operation Date: 05/23/20 07:05 Pre-Op Diagnosis: LEFT HIP FRACTURE Post-Op Diagnosis: LEFT HIP FRACTURE I identified the patient and participated in the time-out.: Yes Procedure Operation Date: 05/23/20 07:05 Actual Procedures p Left Cemented Bipolar Hip(Left) - Emmett Narayanan MD Surgeon Emmett Narayanan MD Airbrush Artist Photography Quentin, PAC Estimated Blood Loss 200 Findings Consistent with Post-Op Diagnosis Fluids 800 cc Specimens Specimen Description: A. Left Femoral Head Drains Kirkpatrick Catheter Anesthesia Type General Complications none Disposition Accompanied Patient To Recovery: No Disposition: Recovery Room
--- NOTE | 2020-05-23 16:32 | Anesthesiology Progress Note ---
Date of Service May 23, 2020 Anesthesia Post Procedure Vital Signs Vital Signs: Temp Pulse Pulse Pulse Pulse Resp BP 05/23/20 16:20 61 16 05/23/20 16:10 55 L 16 05/23/20 16:00 59 L 16 05/23/20 15:50 64 14 05/23/20 15:40 64 14 05/23/20 15:38 37.4 C 68 12 05/23/20 12:45 36.8 C 70 18 05/23/20 07:00 37.4 C 73 18 05/22/20 23:00 37.1 C 83 20 05/22/20 21:35 37.4 C 77 20 05/22/20 21:10 91 H 15 05/22/20 21:00 79 13 206/113 H 05/22/20 20:50 79 19 05/22/20 20:40 77 18 05/22/20 20:30 81 11 L 05/22/20 20:20 81 12 05/22/20 20:10 80 14 05/22/20 20:01 80 13 187/117 H 05/22/20 20:00 80 05/22/20 19:50 79 05/22/20 19:45 82 20 05/22/20 18:13 37.1 C 83 18 125/83 BP BP Pulse Ox 05/23/20 16:20 152/83 H 98 05/23/20 16:10 140/67 99 05/23/20 16:00 123/86 97 05/23/20 15:50 127/82 97 05/23/20 15:40 136/83 97 05/23/20 15:38 127/79 96 05/23/20 12:45 186/109 H 98 05/23/20 07:00 146/88 H 96 05/22/20 23:00 149/85 H 96 05/22/20 21:35 209/122 H 96 05/22/20 21:10 05/22/20 21:00 97 05/22/20 20:50 05/22/20 20:40 05/22/20 20:30 05/22/20 20:20 05/22/20 20:10 05/22/20 20:01 95 05/22/20 20:00 05/22/20 19:50 05/22/20 19:45 05/22/20 18:13 96 Pain Intensity Left Hip: Pain Intensity: 0 Transfer of Care Handoff Completed per policy Notes Mental Status: alert / awake / arousable Patient Amnestic to Procedure: Yes Nausea / Vomiting: adequately controlled Pain: adequately controlled Airway Patency, RR, SpO2: stable & adequate BP & HR: stable & adequate Hydration State: stable & adequate Anesthetic Complications: no major complications apparent Notes: patient had some sinus pauses intraoperatively treated with robinul. sinus ivan on 12 lead in pacu and asymptomatic. ok to return to med surg floor
--- NOTE | 2020-05-23 16:35 | XRay Report ---
AP, CROSSTABLE LATERAL LEFT HIP History: Left hip hemiarthroplasty. Degenerative arthritis. Postop. FINDINGS: The patient is status post a left hip hemiarthroplasty. The hardware is intact. No fracture or dislocation. Skin jean paul are in place. IMPRESSION: Left hip hemiarthroplasty. No evidence for hardware complication. ACT 112: Negative or not required by law. Electronically signed by: Ortega Powers M.D. 05/23/2020 4:33 PM
--- NOTE | 2020-05-23 17:24 | Operative Report ---
Post Operative Report Pre & Post Diagnosis Operation Date: 05/23/20 07:05 Pre-Op Diagnosis: LEFT DISPLACED FEMORAL NECK/HIP FRACTURE Post-Op Diagnosis: LEFT DISPLACED FEMORAL NECK/HIP FRACTURE I identified the patient and participated in the time-out.: Yes Procedure Operation Date: 05/23/20 07:05 Actual Procedures p Left Cemented Bipolar Hip(Left) - Emmett Narayanan MD Surgeon Emmett Narayanan MD Deliverer Merchandise Quentin, PAC Estimated Blood Loss 200 Findings Consistent with Post-Op Diagnosis Operative findings revealed displaced left femoral neck fracture with some comminution. He had fairly mild arthritic changes of the acetabulum and femoral head. Fluids 800 cc. Specimens Left femoral head sent for pathology. Drains None. Anesthesia Type General Complications none Disposition Accompanied Patient To Recovery: No Disposition: Recovery Room Indications Patient is an 84-year-old gentleman well-known to me from previous knee replacement 7 years ago. He sustained a fall 10 days ago and is had difficulty mobilizing since then. He was seen in the medicine clinic yesterday and diagnosed with a femoral neck fracture. He was sent to the hospital and admitted by the hospitalist service and medically optimized. X-rays and clinical exam confirmed a displaced femoral neck fracture with shortening and external rotation of his left hip and leg. He had minimal underlying arthritic change. The patient elected proceed with surgical treatment. Description of Procedure Operative implants consist of: 1. Doug size 11 LD fracture fracture stem. 2. 28 mm / +7 mm femoral head. 3. 48 mm bipolar shell and liner. 4. 10 mm centralizer. 5. Small cement restrictor. The patient was taken to the operating room identified and placed on the operating table supine position general contact areas were properly padded. IV antibiotics were 5 by anesthesia team. A spinal anesthetic was attempted but was unsuccessful. Therefore a general anesthetic was implemented. Patient was then placed in the right lateral decubitus position. A Kirkpatrick catheter was placed in a sterile fashion as well. A Stulberg hip positioner was used for positioning. The left hip and leg were then scrubbed with Hibiclens and then prepped with ChloraPrep and draped in usual sterile fashion. A posterior lateral posterior left hip was then performed to a curvilinear incision centered over the greater trochanter. This right through his hematoma the lateral side of his hip from the fall. Sharp dissection got through subcutaneous tissue down to the IT band and gluteal fascia the IT band gluteal fascia then incised longitudinally in line with skin incision. The underlying greater bursa was excised. The piriformis and external rotators were tagged and taken off the posterior aspect hip joint capsule. The posterior hip joint capsule was then incised leaving a large flap for repair. Hip was internally rotated. Femoral neck osteotomy cut was made about 5 mm above the lesser trochanter below the fracture site. The femoral neck superiorly was removed and sent for pathology. The femur was retracted anteriorly. The femoral head was removed and sized. The acetabulum sized to a size 48. The attention drawn the femur. The proximal femur was entered with a cookie-cutter followed by canal finder. I then used a lateralizing reamer. I broached being the size 10 and progressing to 11. He had pretty good cancellus envelope and a good fit with this. We trialed the hip and the +7 articular ball seem to recreate soft tissue tension appropriately and leg lengths equally. The hip was fully stable in full extension and external rotation and flexion to 90 degrees internal rotation over [address] I elect to place these implants. All trial implants were removed. A cement plug was placed distally about 14 cm down the canal. I irrigated the canal extensively. A double batch Palacos G cement was mixed. This was injected into the canal and then a size 11 Doug LD fracture of fracture stem was placed. I held this until the cement was hard. Then placed a +7/28 mm articular ball and a 48 mm bipolar shell in mind. Hip was located once again found to be stable. Attention drawn toward closing. Wounds irrigated cups ounce pulsatile lavage solution. I did inject locally with 60 cc of half percent Marcaine with epinephrine. The posterior capsule was then closed with #2 Tycron suture in a [id number] fashion. The external rotators were then reapproximated to the posterior aspect of the hip abductors with #2 Tycron suture. The IT band gluteal fascia then closed in 1 PDS suture in running fashion with subcutaneous tissue then closed 2 layers the deep layer #1 Vicryl suture and subcutaneous tissues with 2 Dexon suture in a buried interrupted fashion. Skin was closed with skin jean paul. Legs then cleaned drie d and sterile dressed with Xeroform, 4 fourths, ABD pad and foam tape was applied. Patient then brought out of general incision transferred to the recovery room in stable condition. Patient tolerated procedure well and there were no complications. Andriy Saavedra, my physician music library assistant, was present for the entire procedure. His assistance was essential and required for appropriate patient positioning, prepping and draping, surgical exposure, performing the technical details of the operation, placement the implants, closure of the wound, and placement of the sterile bandage. I attest to the content of the Intraoperative Record and any orders documented therein. Any exceptions are noted below.
[2020-05-23] MEDS: DOCUSATE SODIUM/SENNA 50/8.6MG TAB PO SCH (20:50)
[2020-05-23] MEDS: SIMVASTATIN 40 MG TAB PO SCH (20:50)
[2020-05-23] MEDS: ASPIRIN 81 MG ECTAB PO SCH (20:51)
[2020-05-23] MEDS: DOXAZosin MESYLATE 4 MG TAB PO SCH (20:51)
[2020-05-23] MEDS ORDERED: SODIUM CHLORIDE 0.9% 1000ML 500 ML IV ONE (21:36)
[2020-05-23] MEDS: KETOROLAC TROMETHAMINE 15 MG/ML VIAL IV PRN (21:54)
--- NOTE | 2020-05-23 23:39 | Hospitalist Progress Note ---
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 s/p ORIF by Dr Narayanan today. DVT proph - asa 81mg BID. pain control. PT, OT. appreciate ortho assistance. (2) Hypotension: post-op hold BB and alpha sandip 500cc NS bolus NOW followed by ongoing IVF likely due to acute blood loss anemia as stated below he has adrenal adenoma if hypotension is refractory to fluids consider cortisol level (3) Acute blood loss anemia: 2nd to bleeding into soft tissues of left thigh along with operative blood loss CBC am likely to need Fe supplementation (4) Benign prostatic hyperplasia: Continue Doxasozin if BP allows (5) Chronic kidney disease, stage 3a: Baseline CrCl 30s/40s BMP in am (6) Hyperlipidemia: Continue Simvastatin (7) Hypertension: now with post-op HYPO-tension HOLD coreg HOLD doxazosin (8) Vitamin D deficiency: 25-OH vit D 13.5. ergocalciferol 81905 Units qweekly x 8 weeks, first dose tomorrow am. (9) Acquired solitary kidney: left kidney is absent. 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 if patient has refractory hypotension consider adrenal insufficiency. would obtain cortisol level then. (12) DVT prophylaxis: asa 81mg BID Admission and Anticipated Discharge Date Admission Date: May 22, 2020 Subjective saw patient post-op from his ORIF on the orthopedic floor. he was eating his dinner. denied dyspnea, chest pain, abd pain, nausea or emesis. o2 sats in room air during the visit were upper 90s. we discussed that most people with hip fracture s/p ORIF need rehab after discharge. he quickly stated that this was not appealing to him and that he thought he could return home because he had enough help. mentioned that PT/OT would work with him to determine best disposition. Review of Systems Constitutional: no fever Respiratory: no cough and no dyspnea Cardiovascular: no chest pain Gastrointestinal: no abdominal pain, no nausea and no vomiting Physical Exam Constitutional: no acute distress and no altered mental status ENMT: Mouth: + dry oral mucous membranes Respiratory: normal respiratory effort, lungs clear to auscultation Cardiovascular: Rate/Rhythm: regular rate and regular rhythm Heart Sounds: normal S1 and normal S2; no murmur Vessels: posterior tibial pulses present and dorsalis pedis pulses present; no JVD Extremities: no edema Gastrointestinal (Abdomen): Inspection/Auscultation: + abdomen distended (Minimal ) and normal bowel sounds Percussion/Palpation: abdomen soft; abdomen nontender and no hepatosplenomegaly Skin: + pallor (Mild) Psychiatric: A+Ox3, euthymic affect Results & Data Results & Data ([facility]) Vital Signs (Past 12 Hours) Vital Signs Temp Pulse Pulse Pulse Resp BP BP 05/23/20 23:13 37.6 C H 94 H 17 96/58 L 05/23/20 22:31 37.2 C 89 16 96/61 L 05/23/20 20:00 37.1 C 99 H 16 97/60 L 05/23/20 18:55 36.4 C L 77 16 98/60 L 05/23/20 17:57 37.6 C H 84 16 91/52 L 05/23/20 17:32 36.5 C 69 16 126/74 05/23/20 16:55 36.5 C 65 16 140/80 05/23/20 16:40 36.4 C L 66 18 139/78 05/23/20 16:30 61 16 139/80 05/23/20 16:20 61 16 152/83 H 05/23/20 16:10 55 L 16 140/67 05/23/20 16:00 59 L 16 123/86 05/23/20 15:50 64 14 127/82 05/23/20 15:40 64 14 136/83 05/23/20 15:38 37.4 C 68 12 127/79 05/23/20 12:45 36.8 C 70 18 186/109 H Pulse Ox 05/23/20 23:13 94 05/23/20 22:31 93 05/23/20 20:00 96 05/23/20 18:55 93 05/23/20 17:57 96 05/23/20 17:32 94 05/23/20 16:55 95 05/23/20 16:40 98 05/23/20 16:30 98 05/23/20 16:20 98 05/23/20 16:10 99 05/23/20 16:00 97 05/23/20 15:50 97 05/23/20 15:40 97 05/23/20 15:38 96 05/23/20 12:45 98 Laboratory Results Laboratory Results - last 24 hr 05/23/20 05/23/20 05/23/20 04:35 11:21 11:21 WBC 7.31 RBC 3.62 L Hgb 11.5 L Hct 35.1 L MCV 97.0 MCH 31.8 MCHC 32.8 RDW Std Deviation 50.6 H RDW Coeff of Lauren 14.2 Plt Count 130 MPV 11.3 H Sodium 139 Potassium 4.3 Chloride 108 H Carbon Dioxide 28 Anion Gap 3.0 BUN 22 H Creatinine 1.10 Est Cr Clr Drug Dosing 46.6 Est GFR ( Amer) 70.1 Est GFR (Non-Af Amer) 60.5 BUN/Creatinine Ratio 20.3 H Glucose 92 Calcium 8.6 Magnesium 2.3 25-OH Vitamin D Total Urine Color Yellow Urine Appearance Clear Urine pH 6.5 Ur Specific [place] 1.019 Urine Protein Negative Urine Glucose (UA) Negative Urine Ketones Negative Urine Blood 1+ H Urine Nitrite Negative Urine Bilirubin Negative Urine Urobilinogen Negative Ur Leukocyte Esterase Negative Urine WBC (Auto) 1-5 Urine RBC (Auto) 5-10 H U Hyaline Cast (Auto) 0 U Epithel Cells (Auto) 10-20 H Urine Bacteria (Auto) Negative 05/23/20 11:21 WBC RBC Hgb Hct MCV MCH MCHC RDW Std Deviation RDW Coeff of Lauren Plt Count MPV Sodium Potassium Chloride Carbon Dioxide Anion Gap BUN Creatinine Est Cr Clr Drug Dosing Est GFR ( Amer) Est GFR (Non-Af Amer) BUN/Creatinine Ratio Glucose Calcium Magnesium 25-OH Vitamin D Total 13.5 L Urine Color Urine Appearance Urine pH Ur Specific [place] Urine Protein Urine Glucose (UA) Urine Ketones Urine Blood Urine Nitrite Urine Bilirubin Urine Urobilinogen Ur Leukocyte Esterase Urine WBC (Auto) Urine RBC (Auto) U Hyaline Cast (Auto) U Epithel Cells (Auto) Urine Bacteria (Auto) PG Care Time/CCT Total # of Minutes Spent Total Time Spent with Patient: Total time spent is greater than 50% in coordination of care (as documented) at patient's floor/unit and/or counseling patient: Coding Level of Care Code 15028 Subseq Hosp Care Lvl 3 Diagnoses 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 M80.052D Osteoporosis type: age-related Site of pathological fracture: hip Encounter type: subsequent encounter Laterality: left Fracture healing: with routine healing Hypotension I95.89 Hypotension type: other hypotension type Acute blood loss anemia D62 Benign prostatic hyperplasia N40.0 Lower urinary tract symptom presence: unspecified whether lower urinary tract symptoms present Chronic kidney disease, stage 3a N18.3 Hyperlipidemia E78.00 Hyperlipidemia type: pure hypercholesterolemia Hypertension I10 Hypertension type: essential hypertension Vitamin D deficiency E55.9 Acquired solitary kidney Z90.5 Pre-diabetes R73.03 Adrenal cortical adenoma D35.02 Laterality: left DVT prophylaxis Z29.9 (1) Benign prostatic hyperplasia Lower urinary tract symptom presence: unspecified whether lower urinary tract symptoms present Qualified Code(s): N40.0 - Benign prostatic hyperplasia w ithout lower urinary tract symptoms (2) 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 Osteoporosis type: age-related Site of pathological fracture: hip Encounter type: subsequent encounter Laterality: left Fracture healing: with routine healing Qualified Code(s): M80.052D - Age-related osteoporosis with current pathological fracture, left femur, subsequent encounter for fracture with routine healing (3) Hyperlipidemia Hyperlipidemia type: pure hypercholesterolemia Qualified Code(s): E78.00 - Pure hypercholesterolemia, unspecified (4) Hypertension Hypertension type: essential hypertension Qualified Code(s): I10 - Essential (primary) hypertension (5) Hypotension Hypotension type: other hypotension type Qualified Code(s): I95.89 - Other hypotension (6) Adrenal cortical adenoma Laterality: left Qualified Code(s): D35.02 - Benign neoplasm of left adrenal gland
[2020-05-24] MEDS ORDERED: ACETAMINOPHEN 325 MG TAB PO PRN (04:16)
[2020-05-24] MEDS ORDERED: LACTATED RINGER'S 500 ML IV ONE (06:00)
[2020-05-24 07:18] LABS: Basophils # (auto) 0.02 K/uL (0-0.2); Basophils % (auto) 0.2 %; Eosinophils # (auto) 0.05 K/uL (0-0.5); Eosinophils % (auto) 0.5 %; Hematocrit (blood only) 30.3 % (42-52); Hemoglobin 9.9 g/dL (14.0-18.0); Immature Granulocytes # (auto) 0.02 K/uL (0.00-0.02); Immature Granulocytes % (auto) 0.2 %; Lymphocytes # (auto) 1.41 K/uL (1.2-3.4); Lymphocytes % (auto) 13.8 %; Mean Corpuscular Hemoglobin 31.6 pg (25-34); Mean Corpuscular Hgb Conc 32.7 g/dL (32-36); Mean Corpuscular Volume 96.8 fL (80-100); Mean Platelet Volume 11.7 fL (7.4-10.4); Monocytes # (auto) 1.01 K/uL (0.11-0.59); Monocytes % (auto) 9.9 %; Neutrophils # (auto) 7.73 K/uL (1.4-6.5); Neutrophils % (auto) 75.4 %; Platelet Count 126 K/uL (130-400); RDW Coefficient of Variation 14.5 % (11.5-14.5); RDW Standard Deviation 51.5 fL (36.4-46.3); Red Blood Count 3.13 M/uL (4.7-6.1); White Blood Count 10.24 K/uL (4.8-10.8)
[2020-05-24] MEDS: carvediloL 12.5 MG TAB PO SCH ×2 (07:38→20:39)
[2020-05-24] MEDS: LACTATED RINGER'S 1,000 ML IV SCH ×2 (07:38→13:45)
[2020-05-24] MEDS: ASPIRIN 81 MG ECTAB PO SCH ×2 (07:39→20:43)
[2020-05-24] MEDS: KETOROLAC TROMETHAMINE 15 MG/ML VIAL IV PRN (07:40)
[2020-05-24 07:55] LABS: BUN Creatinine Ratio 19.2 (10-20); Est GFR (African American) 47.8; Est GFR (Non-African American) 41.2; Potassium 4.9 mmol/L (3.5-5.1)
[2020-05-24] MEDS ORDERED: ERGOCALCIFEROL 50,000 UNITS 1250 MCG CAP PO ONE (09:00)
--- NOTE | 2020-05-24 09:29 | Progress Notes ---
DATE: 05/24/2020 SUBJECTIVE: An 84-year-old gentleman postop day 1 from a left cemented bipolar hip arthroplasty for fracture. He is doing well. He says his pain is controlled. No other complaints. No chest pain or shortness of breath. Not feeling dizzy or lightheaded. OBJECTIVE: VITAL SIGNS: Temperature 37.3. Vital signs stable. GENERAL: Shows a pleasant elderly male. He is lying in bed. He is awake, alert and oriented. EXTREMITIES: Examination of left hip reveals the leg to be well aligned. Leg lengths are equal. Dressing is clean, dry and intact. Thigh is soft and supple. He can dorsiflex and plantarflex his foot appropriately. LABORATORY DATA: Hemoglobin 9.9. Hematocrit 30.3. Electrolytes are stable. Creatinine is a little bit elevated at 1.51. ASSESSMENT: An 84-year-old gentleman postop day 1 from a left cemented bipolar hip arthroplasty for fracture. Orthopedically, he is doing well. Pain is controlled. Hip is located. He is neurologically intact. His creatinine is a little bit elevated and we will follow this likely due to volume depletion. BUN is also elevated. PLAN: 1. DVT prophylaxis including thigh-high TEDs, SCDs, and aspirin twice a day. 2. PT/OT. He can weightbear as tolerated. 3. Pain control, doing well with current pain regimen. 4. Elevated creatinine. Medicine service is the primary. We will let them manage this. Looks like he probably needs fluid concerning his elevated BUN and creatinine. 5. Disposition. He is orthopedically okay for discharge any time medically stable. He wants to go home and I certainly think that is reasonable. If he has got a good support network like he describes. He will likely need some home health. I need to see him back in 2-3 weeks out from surgery date. Any orthopedic questions can be directed to me at [phone].
--- NOTE | 2020-05-24 12:35 | Anesthesiology Progress Note ---
Date of Service May 24, 2020 Anesthesia Post Procedure Vital Signs Vital Signs: Temp Pulse Pulse Pulse Resp BP BP 05/24/20 07:33 37.3 C 98 H 16 93/57 L 05/24/20 03:38 37.7 C H 96 H 16 94/59 L 05/23/20 23:13 37.6 C H 94 H 17 96/58 L 05/23/20 22:31 37.2 C 89 16 96/61 L 05/23/20 20:00 37.1 C 99 H 16 97/60 L 05/23/20 18:55 36.4 C L 77 16 98/60 L 05/23/20 17:57 37.6 C H 84 16 91/52 L 05/23/20 17:32 36.5 C 69 16 126/74 05/23/20 16:55 36.5 C 65 16 140/80 05/23/20 16:40 36.4 C L 66 18 139/78 05/23/20 16:30 61 16 139/80 05/23/20 16:20 61 16 152/83 H 05/23/20 16:10 55 L 16 140/67 05/23/20 16:00 59 L 16 123/86 05/23/20 15:50 64 14 127/82 05/23/20 15:40 64 14 136/83 05/23/20 15:38 37.4 C 68 12 127/79 05/23/20 12:45 36.8 C 70 18 186/109 H Pulse Ox 05/24/20 07:33 96 05/24/20 03:38 94 05/23/20 23:13 94 05/23/20 22:31 93 05/23/20 20:00 96 05/23/20 18:55 93 05/23/20 17:57 96 05/23/20 17:32 94 05/23/20 16:55 95 05/23/20 16:40 98 05/23/20 16:30 98 05/23/20 16:20 98 05/23/20 16:10 99 05/23/20 16:00 97 05/23/20 15:50 97 05/23/20 15:40 97 05/23/20 15:38 96 05/23/20 12:45 98 Pain Intensity Left Hip: Pain Intensity: 7 Transfer of Care Handoff Completed per policy Notes Mental Status: alert / awake / arousable and participated in evaluation Patient Amnestic to Procedure: Yes Nausea / Vomiting: adequately controlled Pain: adequately controlled Airway Patency, RR, SpO2: stable & adequate BP & HR: stable & adequate Hydration State: stable & adequate Anesthetic Complications: no major complications apparent and Pt Satisfied with anesthetic care
--- NOTE | 2020-05-24 13:49 | Hospitalist Progress Note ---
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 S/p ORIF by Dr Narayanan on 05/23. - DVT proph - asa 81mg BID. - Pain control. - PT, OT. - Followed up today. Orthopedics gives him clearance for discharge when ready. (2) Hypotension: Post-op and now continued today. BP 107/60 lying, but down to 75/50 on standing. Asymptomatic. - Likely due to acute blood loss anemia - Hold BB and alpha sandip - Continue IVFs - Will get AM cortisol tomorrow. (3) Chronic kidney disease, stage 3a: Baseline CrCl 30s/40s, with Cr ~1.2. - Now with mild acute kidney injury with Cr ~1.5. Possibly pre-renal vs. ATN from low BP. - Continue IV fluids - Renal u/s ordered -> If worsening tomorrow, will get nephrology consult. (4) Acute blood loss anemia: 2nd to bleeding into soft tissues of left thigh along with operative blood loss. - IV Venofer (5) Benign prostatic hyperplasia: - Continue doxazosin if BP allows. (6) Hyperlipidemia: - Continue simvastatin (7) Hypertension: Now with post-op HYPOtension. - HOLD Coreg & doxazosin (8) Vitamin D deficiency: 25-OH vit D was 13.5. - Ergocalciferol 95893 Units qweekly x 8 weeks, first dose tomorrow am. (9) Acquired solitary kidney: Left kidney is absent. (10) Adrenal cortical adenoma: Noted on [address] (11) DVT prophylaxis: ASA 81mg PO BID Admission and Anticipated Discharge Date Admission Date: May 22, 2020 Subjective Feels "great" today and does not have any issues. No pain, no stomach issues, no shortness of breath. Feels well. Reports no fevers/chills, chest pain, shortness of breath, abdominal pain, nausea, or vomiting. Physical Exam Constitutional: WD/WN, vitals as above Eyes: EOM intact bilaterally; no conjunctival abnormality ENMT: external ear and nose normal, oropharynx normal Neck: trachea midline, no thyromegaly normal visual inspection Respiratory: normal respiratory effort, lungs clear to auscultation no respiratory distress Cardiovascular: RRR, no murmur, no edema Gastrointestinal (Abdomen): Inspection/Auscultation: abdomen normal to inspection; abdomen not distended Musculoskeletal: no cyanosis or clubbing, extremities motor strength 5/5 Skin: no rashes, warm and dry Neurologic: moves all extremities and awake Psychiatric: Orientation: alert, oriented to person and cooperative Results & Data Results & Data ([facility]) Vital Signs (Past 12 Hours) Vital Signs Temp Pulse Pulse Resp BP Pulse Ox 05/24/20 07:33 37.3 C 98 H 16 93/57 L 96 05/24/20 03:38 37.7 C H 96 H 16 94/59 L 94 PG Care Time/CCT Total # of Minutes Spent Total Time Spent with Patient: Total time spent is greater than 50% in coordination of care (as documented) at patient's floor/unit and/or counseling patient: Coding Level of Care Code 88029 Subseq Hosp Care Lvl 3 Diagnoses 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 M80.052D Osteoporosis type: age-related Site of pathological fracture: hip Encounter type: subsequent encounter Laterality: left Fracture healing: with routine healing Hypotension I95.89 Hypotension type: other hypotension type Chronic kidney disease, stage 3a N18.3 Acute blood loss anemia D62 Benign prostatic hyperplasia N40.0 Lower urinary tract symptom presence: unspecified whether lower urinary tract symptoms present Hyperlipidemia E78.00 Hyperlipidemia type: pure hypercholesterolemia Hypertension I10 Hypertension type: essential hypertension Vitamin D deficiency E55.9 Acquired solitary kidney Z90.5 Adrenal cortical adenoma D35.02 Laterality: left DVT prophylaxis Z29.9 (1) 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 Osteoporosis type: age-related Site of pathological fracture: hip Encounter type: subsequent encounter Laterality: left Fracture healing: with routine healing Qualified Code(s): M80.052D - Age-related osteoporosis with current pathological fracture, left femur, subsequent encounter for fracture with routine healing (2) Hypotension Hypotension type: other hypotension type Qualified Code(s): I95.89 - Other hypotension (3) Benign prostatic hyperplasia Lower urinary tract symptom presence: unspecified whether lower urinary tract symptoms present Qualified Code(s): N40.0 - Benign prostatic hyperplasia without lower urinary tract symptoms (4) Hyperlipidemia Hyperlipidemia type: pure hypercholesterolemia Qualified Code(s): E78.00 - Pure hypercholesterolemia, unspecified (5) Hypertension Hypertension type: essential hypertension Qualified Code(s): I10 - Essential (primary) hypertension (6) Adrenal cortical adenoma Laterality: left Qualified Code(s): D35.02 - Benign neoplasm of left adrenal gland
[2020-05-24] MEDS ORDERED: IRON SUCROSE 300 MG in SODIUM CHLORIDE 0.9% 250 ML IV STA (13:50)
[2020-05-24 14:08] LABS: Hematocrit (blood only) 28.4 % (42-52); Hemoglobin 9.1 g/dL (14.0-18.0)
--- NOTE | 2020-05-24 14:54 | Ultrasound Report ---
RENAL ULTRASOUND CLINICAL HISTORY: NURIS, low urine output COMPARISON STUDY: CT of the abdomen and pelvis May 25, 2018. TECHNIQUE: Sonography of the kidneys and the urinary bladder was performed. FINDINGS: The left kidney is surgically absent. There is no abnormality within the left nephrectomy b ed. The right kidney measures 15.3 cm in maximal dimension. Numerous right renal cysts measure up to 5.8 cm. A few cysts have thin septations. There is no right hydronephrosis. The bladder contains a Fo mary balloon and is collapsed. IMPRESSION: 1. No right hydronephrosis. 2. Numerous right renal cysts. 3. Status post left nephrectomy. ACT 112: Negative or not required by law. Electronically signed by: Arsenio Vines M.D. 05/24/2020 2:53 PM
[2020-05-24] MEDS: DOXAZosin MESYLATE 4 MG TAB PO SCH (20:39)
[2020-05-24] MEDS: SIMVASTATIN 40 MG TAB PO SCH (20:42)
[2020-05-24] MEDS: DOCUSATE SODIUM/SENNA 50/8.6MG TAB PO SCH (20:43)
[2020-05-25] MEDS: LACTATED RINGER'S 1,000 ML IV SCH ×2 (00:53→10:33)
[2020-05-25] MEDS: KETOROLAC TROMETHAMINE 15 MG/ML VIAL IV PRN ×2 (00:56→16:31)
[2020-05-25 07:35] LABS: Hematocrit (blood only) 28.5 % (42-52); Hemoglobin 9.4 g/dL (14.0-18.0); Mean Corpuscular Hemoglobin 31.8 pg (25-34); Mean Corpuscular Volume 96.3 fL (80-100); Mean Platelet Volume 10.8 fL (7.4-10.4); Platelet Count 101 K/uL (130-400); RDW Coefficient of Variation 14.4 % (11.5-14.5); RDW Standard Deviation 50.8 fL (36.4-46.3); Red Blood Count 2.96 M/uL (4.7-6.1); White Blood Count 9.78 K/uL (4.8-10.8)
[2020-05-25 08:07] LABS: BUN Creatinine Ratio 19.3 (10-20); Calcium 8.4 mg/dl (8.5-10.1); Creatinine Clr Calc Pharmacy 41.7 ml/min; Est GFR (African American) 61.2; Est GFR (Non-African American) 52.8; Magnesium 2.1 mg/dl (1.8-2.4); Potassium 4.7 mmol/L (3.5-5.1)
[2020-05-25] MEDS: ASPIRIN 81 MG ECTAB PO SCH ×2 (08:36→21:00)
[2020-05-25] MEDS: carvediloL 12.5 MG TAB PO SCH (08:36)
--- NOTE | 2020-05-25 08:54 | Progress Notes ---
DATE: 05/25/2020 SUBJECTIVE: An 84-year-old gentleman now postop day 2 from a left cemented bipolar hip arthroplasty for fracture. He is doing pretty well. Anxious to get home. He would like to get home. His pain is controlled. Denies any chest pain or shortness of breath. Not feeling dizzy or lightheaded. OBJECTIVE: VITAL SIGNS: Temperature 37.6. Vital signs stable. GENERAL: Shows a pleasant elderly male. He is lying in bed, looks pretty comfortable. He is awake, alert and oriented. EXTREMITIES: Examination of left hip reveals the leg to be well aligned. Dressing is clean, dry and intact. Thigh is soft and supple. He is neurologically intact. LABORATORY DATA: Hemoglobin 9.4. Hematocrit 28.5. Electrolytes are improved with creatinine back and within normal range at 1.23. ASSESSMENT: An 84-year-old gentleman postop day 2 from left hip replacement, doing pretty well. Pain controlled. His renal function is improved. Hemoglobin is stable. PLAN: 1. DVT prophylaxis including thigh-high TEDs, SCDs, and aspirin twice a day. 2. PT/OT. He can fully weightbear on this left leg. He needs to obey total hip precautions. 3. Pain control, doing well with current pain regimen. 4. Medical management. His creatinine is improved and back to normal. He has got a Kirkpatrick catheter in, which needs to be discontinued and make sure he can urinate. Orthopedically and medically appears stable to be discharged. 5. Disposition. He is hoping to be discharged to home. He can certainly benefit from some home health. Orthopedically looks like he is ready for discharge any time. I need to see him back in 2-3 weeks from his surgery date. Any orthopedic questions can be directed to me at [phone].
[2020-05-25] MEDS ORDERED: IRON SUCROSE 200 MG in 0.9 % SODIUM CHLORIDE 100 ML IV ONE (12:00)
--- NOTE | 2020-05-25 13:51 | Electrocardiogram Report ---
Test Reason : Blood Pressure : / mmHG Vent. Rate : 057 BPM Atrial Rate : 057 BPM P-R Int : 150 ms QRS Dur : 082 ms QT Int : 466 ms P-R-T Axes : 050 047 065 degrees QTc Int : 453 ms Sinus bradycardia Otherwise normal ECG When compared with ECG of 22-MAY-2020 19:02, No significant change was found Confirmed by Mohinder Joseph ([id number]) on 05/25/2020 1:50:57 PM Referred By: REFERRED SELF Confirmed By:Mohinder Joseph
--- NOTE | 2020-05-25 18:42 | Hospitalist Progress Note ---
Date of Service May 25, 2020 Assessment & Plan (1) Urinary retention: Occurred on 05/25 with multiple bladder scans > 300 mL and upwards of 900 mL released on straight cath. - Discharged with Kirkpatrick catheter and Urology follow up. 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 S/p ORIF by Dr Narayanan on 05/23. - DVT proph - asa 81mg BID. - Pain control. - PT, OT. - Followed up today. Orthopedics gives him clearance for discharge when ready. (3) Hypotension: Post-op and now continued today. BP 107/60 lying, but down to 75/50 on standing. Asymptomatic. - Likely due to acute blood loss anemia - Hold BB and alpha sandip - AM cortisol was normal at 14.75. - Likely due to volume shifts and medications. Lowered his carvedilol and doxazosin by 1/2 each. Can be re-adjusted once he has recovered from surgery. (4) Chronic kidney disease, stage 3a: Baseline CrCl 30s/40s, with Cr ~1.2. Absent left kidney. - Now with mild acute kidney injury with Cr ~1.5. Possibly pre-renal vs. ATN from low BP. - Renal u/s ordered - Normal - Back to baseline by discharge. (5) Acute blood loss anemia: 2nd to bleeding into soft tissues of left thigh along with operative blood loss. - IV Venofer (6) Benign prostatic hyperplasia: - Continue doxazosin if BP allows. (7) Hyperlipidemia: - Continue simvastatin (8) Hypertension: Now with post-op HYPOtension. - Lowered Coreg & doxazosin (9) Vitamin D deficiency: 25-OH vit D was 13.5. - Ergocalciferol 05971 Units qweekly x 8 weeks, first dose tomorrow am. (10) Acquired solitary kidney: Left kidney is absent. 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 (12) DVT prophylaxis: ASA 81mg PO BID Admission and Anticipated Discharge Date Admission Date: May 22, 2020 Subjective Feels well. Up and walking around. Reports no fevers/chills, chest pain, shortness of breath, abdominal pain, nausea, or vomiting. Physical Exam Constitutional: WD/WN, vitals as above Eyes: EOM intact bilaterally; no conjunctival abnormality ENMT: external ear and nose normal, oropharynx normal Neck: trachea midline, no thyromegaly normal visual inspection Respiratory: normal respiratory effort, lungs clear to auscultation no respiratory distress Cardiovascular: RRR, no murmur, no edema Gastrointestinal (Abdomen): Inspection/Auscultation: abdomen normal to inspection; abdomen not distended Musculoskeletal: no cyanosis or clubbing, extremities motor strength 5/5 Skin: no rashes, warm and dry Neurologic: moves all extremities and awake Psychiatric: Orientation: alert, oriented to person and cooperative Results & Data Results & Data ([facility]) Vital Signs (Past 12 Hours) Vital Signs Temp Pulse Pulse Resp BP BP Pulse Ox 05/25/20 14:29 37 C 18 93 05/25/20 13:39 89 89/54 L 05/25/20 12:22 37.1 C 76 16 94/61 L 98 05/25/20 10:44 36.6 C 05/25/20 07:37 37.6 C H 95 H 18 126/76 95 PG Care Time/CCT Total # of Minutes Spent Total Time Spent with Patient: Total time spent is greater than 50% in coordination of care (as documented) at patient's floor/unit and/or counseling patient: Coding Level of Care Code 99435 Subseq Hosp Care Lvl 3 Diagnoses Urinary retention R33.9 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 M80.052D Encounter type: subsequent encounter Fracture healing: with routine healing Laterality: left Osteoporosis type: age-related Site of pathological fracture: hip Hypotension I95.89 Hypotension type: other hypotension type Chronic kidney disease, stage 3a N18.3 Acute blood loss anemia D62 Benign prostatic hyperplasia N40.0 Lower urinary tract symptom presence: unspecified whether lower urinary tract symptoms present Hyperlipidemia E78.00 Hyperlipidemia type: pure hypercholesterolemia Hypertension I10 Hypertension type: essential hypertension Vitamin D deficiency E55.9 Acquired solitary kidney Z90.5 Adrenal cortical adenoma D35.02 Laterality: left DVT prophylaxis Z29.9 (1) Benign prostatic hyperplasia Lower urinary tract symptom presence: unspecified whether lower urinary tract symptoms present Qualified Code(s): N40.0 - Benign prostatic hyperplasia without lower urinary tract symptoms (2) 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 Encounter type: subsequent encounter Fracture healing: with routine healing Laterality: left Osteoporosis type: age-related Site of pathological fracture: hip Qualified Code(s): M80.052D - Age-related osteoporosis with current pathological fracture, left femur, subsequent encounter for fracture with routine healing (3) Hyperlipidemia Hyperlipidemia type: pure hypercholesterolemia Qualified Code(s): E78.00 - Pure hypercholesterolemia, unspecified (4) Adrenal cortical adenoma Laterality: left Qualified Code(s): D35.02 - Benign neoplasm of left adrenal gland (5) Hypertension Hypertension type: essential hypertension Qualified Code(s): I10 - Essential (primary) hypertension (6) Hypotension Hypotension type: other hypotension type Qualified Code(s): I95.89 - Other hypotension
[2020-05-25] MEDS: carvediloL 6.25 MG TAB PO SCH (20:59)
[2020-05-25] MEDS: SIMVASTATIN 40 MG TAB PO SCH (21:00)
[2020-05-25] MEDS ORDERED: DOXAZosin MESYLATE TAB 2 MG TAB PO SCH (21:00)
[2020-05-25] MEDS: DOCUSATE SODIUM/SENNA 50/8.6MG TAB PO SCH (21:00)
[2020-05-26] MEDS: ASPIRIN 81 MG ECTAB PO SCH (08:44)
[2020-05-26 09:02] LABS: BUN Creatinine Ratio 18.1 (10-20); Calcium 8.2 mg/dl (8.5-10.1); Creatinine Clr Calc Pharmacy 37.7 ml/min; Est GFR (African American) 54.2; Est GFR (Non-African American) 46.8; Potassium 4.3 mmol/L (3.5-5.1)
[2020-05-26] MEDS: carvediloL 6.25 MG TAB PO SCH (09:36)
--- NOTE | 2020-05-26 16:14 | Discharge Summary ---
Date of Service May 26, 2020 Admission HPI Per Admitting Provider Ludin Shea is a pleasant 84yo male with history of HTN, HLP, CKD with solitary kidney presenting with left hip fracture. Patient had a mechanical fall in his home 9 days ago. No head trauma, no LOC. He landed on his left hip. He reports ongoing pain and difficulty with ambulation since then. He has been requiring a walker at home. Pain progressively worsening over the last 9 days - he was seen by his PCP this afternoon and had imaging which revealed an impacted left femoral neck fracture, no dislocation. He has been taking Tylenol 1800mg po daily for pain management at home. Patient states that pain is fairly well controlled at present. He has full sensation and mobility of his LLE. No fevers/chills/CP/palpitations/cough/SOB/abdominal pain/nausea/vomiting/diarrhea/constipation. No concerns for Covid-19 exposure. ER Course: Morphine 4mg, 2mg Principal Diagnosis Hip fracture Hypotension Urinary retention Discharge Exam Constitutional WD/WN, vitals as above Eyes EOM intact bilaterally; no conjunctival abnormality ENMT external ear and nose normal, oropharynx normal Neck trachea midline, no thyromegaly normal visual inspection Respiratory normal respiratory effort, lungs clear to auscultation no respiratory distress Cardiovascular RRR, no murmur, no edema Gastrointestinal (Abdomen) Inspection/Auscultation: abdomen normal to inspection; abdomen not distended Musculoskeletal no cyanosis or clubbing, extremities motor strength 5/5 Skin no rashes, warm and dry Neurologic moves all extremities and awake Psychiatric Orientation: alert, oriented to person and cooperative Discharge Data Allergies Allergy/AdvReac Type Severity Reaction Status Date / Time Sulfa (Sulfonamide Allergy Severe SKIN Verified 05/22/20 19:49 Antibiotics) NECROSIS TO SULFA OINTMENT Consultations 05/22/20 19:14 ED Decision to Admit Stat 05/22/20 22:14 Consult Case Management - Discharge Planning Routine Consult Orthopedic Surgery Routine 05/23/20 16:54 Consult Case Management - Discharge Planning Routine Procedures Performed Operation Date: 05/23/20 07:05 Actual Procedures p Left Cemented Bipolar Hip(Left) - Emmett Narayanan MD Ordered Studies 05/24/20 13:41 US renal/blad retro comp Routine Hospital Course (1) Urinary retention: Occurred on 05/25 with multiple bladder scans > 300 mL and upwards of 900 mL released on straight cath. - Discharged with Kirkpatrick catheter and Urology follow up. 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 S/p ORIF by Dr Narayanan on 05/23. - DVT proph - asa 81mg BID. - Pain control. - PT, OT. - Followed up today. Orthopedics gives him clearance for discharge when ready. (3) Hypotension: Post-op and now continued today. BP 107/60 lying, but down to 75/50 on standing. Asymptomatic. - Likely due to acute blood loss anemia - Hold BB and alpha sandip - AM cortisol was normal at 14.75. - Likely due to volume shifts and medications. Lowered his carvedilol and doxazosin by 1/2 each. Can be re-adjusted once he has recovered from surgery. (4) Chronic kidney disease, stage 3a: Baseline CrCl 30s/40s, with Cr ~1.2. Absent left kidney. - Now with mild acute kidney injury with Cr ~1.5. Possibly pre-renal vs. ATN from low BP. - Renal u/s ordered - Normal - Back to baseline by discharge. (5) Acute blood loss anemia: 2nd to bleeding into soft tissues of left thigh along with operative blood loss. - IV Venofer (6) Benign prostatic hyperplasia: - Continue doxazosin if BP allows. (7) Hyperlipidemia: - Continue simvastatin (8) Hypertension: Now with post-op HYPOtension. - Lowered Coreg & doxazosin (9) Vitamin D deficiency: 25-OH vit D was 13.5. - Ergocalciferol 50433 Units qweekly x 8 weeks, first dose tomorrow am. (10) Acquired solitary kidney: Left kidney is absent. 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 (12) DVT prophylaxis: ASA 81mg PO BID Total Time Total Time Spent Total Time Spent (In Minutes): 35 Discharge Plan Discharge Items Patient Disposition: Home - Home Health Services Reason For Visit: LEFT HIP FRACTURE Discharge Diagnosis: Left Hip Replacement for fracture Activity: Per Instructions section Activity Comment: Obey/Follow hip precautions at all times. Weightbearing: Full weightbearing Weightbearing Comment: Weightbear as tolerated obeying hip precautions. Non-emergency contact: Surgeon Call non-emergency contact if: you have any medication questions Follow-up/Referrals: Steve Pressley MD [Primary Care Provider] - 05/30/20 9:15 am Idalia Pressley CRNP [Nurse Practitioner] - 06/04/20 10:30 am (Please call the Urology Office today for an appointment with a provider in the next 1-2 weeks.) Emmett Narayanan MD [Physician] - 06/12/20 3:20 pm (Orthopedic follow-up 2-3 weeks from surgery date.) Diet: Regular Addtl Attending Provider Instructions: ACTIVITY RECOMMENDATIONS: Physical Therapy: * Aggressive physical therapy is not usually needed. You will learn to take care of yourself safely and walk. * Follow the "Hip Precautions Instructions." * In some cases, the manager social media at the hospital will arrange to have a therapist come to your house for the first couple of weeks to help you learn these skills. * You need to practice on your own or with the help of a family member as needed. * When you learn these skills, most of the therapy can be done on your own. Home Exercise: * You were shown a series of exercises in the hospital. Do these exercises three to four times each day including the exercises you were shown in physical therapy. Walking: * Get up and walk several times each day. For the first four weeks, try not to stand or walk for more than one hour at a time. If you do stand or walk for more than one hour, you will not hurt anything, but your leg will likely swell. * As you feel comfortable, you may change from the walker or crutches to a cane and then to independent walking. MEDICATIONS: New Medicine: * You will likely be taking one or more of these medicines: 1. Tramadol - Take, as directed, when you need it, every six hours to control your pain. 2. Iron Sulfate - Take two times each day for the month after surgery to help you replace the blood lost during surgery. 3. Aspirin - Thins your blood to lessen the chance of forming a blood clot. * The most common side effects of pain medicine and iron are nausea and constipation. If nausea or constipation is too much of a problem or if you have any questions about your new medicines or doses, call [facility] at . We will try to help you manage these issues. "VERY IMPORTANT TO READ AND REVIEW" Pain: * The immediate post-operative period after hip replacement surgery is often quite painful. * You are given a prescription for pain medicine. You should take it, as directed, when you need it, especially before physical therapy and before going to bed. Pain that interferes with sleep is very common and can last several months. * You will likely need pain medicine for the first two to four weeks. It will not stop all of the pain. The pain will lessen and as you feel better, you may change to milder pain medicine such as Tylenol. * The most common side effects of pain medicine are nausea and constipation, so don't take more than you need. SPECIAL CARE INSTRUCTIONS: TEDs/Elastic Stockings: * The white elastic stockings help limit swelling and prevent blood clots from forming in your legs. The more you wear them, the more they work. * Wear them for six weeks. Prevention of Infection: * Take antibiotics one hour before any dental cleaning, dental work, urological procedure, gastrointestinal procedure or any invasive surgery in order to prevent your new joint from getting infected. * You may get the antibiotics from the doctor performing the procedure or you may call our office at before and we will call in a prescription to the pharmacy of your choice. Things to Watch For: * Drainage from the incision site that occurs more than one week after your surgery. * Severely increased leg pain or swelling. * Increased redness at the incision site. * Fever above 102 degrees Fahrenheit. * Unusual chest pain or shortness of breath. * Unusual pain or burning with urination. Call [facility] at with any of the above problems or if you have any questions about your medicines or recovery. FOLLOW UP VISIT: Make an appointment to see your doctor for approximately two weeks after surgery for a progress check and staple removal by calling the office at . Addtl Mirror Polisher Provider Instructions: We lowered your carvedilol and doxazosin due to lower blood pressure in the hospital. Additionally, we held your telmisartan and think you should stop it for now. Dr. Pressley can restart/adjust both of these as needed as your body recovers from surgery. Pending Studies at Discharge: No Stand-Alone Forms: My [facility], Smoking Cessation Medications and DC Order Prescriptions: Continued acetaminophen [Tylenol Arthritis Pain] 650 mg tablet extended release 650 mg PO TID RF: 0 simvastatin 40 mg tablet 40 mg PO HS RF: 0 diazepam 10 mg tablet 10 mg PO DAILY PRN (Reason: Muscle Spasm) RF: 0 Changed carvedilol 12.5 mg tablet 6.25 mg PO BID Qty: 180 RF: 3 aspirin [Aspirin Low Dose] 81 mg Tablet,Delayed Release (Dr/Ec) 81 mg PO BID Qty: 0 RF: 0 doxazosin 4 mg tablet 2 mg PO HS Qty: 0 RF: 0 Discontinued telmisartan 80 mg tablet 80 mg PO QAM RF: 0 Discharge Orders: Discharge Order (Routine); Ordered 05/26/20 Ordered By: Henrique Newton/Other Patient Handouts: Indwelling Urinary Catheter Dc, Discharge Instructions Caring for ... 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 M80.052D Osteoporosis type: age-related Site of pathological fracture: hip Encounter type: subsequent encounter Laterality: left Fracture healing: with routine healing Hypotension I95.89 Hypotension type: other hypotension type Chronic kidney disease, stage 3a N18.3 Acute blood loss anemia D62 Benign prostatic hyperplasia N40.0 Lower urinary tract symptom presence: unspecified whether lower urinary tract symptoms present Hyperlipidemia E78.00 Hyperlipidemia type: pure hypercholesterolemia Hypertension I10 Hypertension type: essential hypertension Vitamin D deficiency E55.9 Acquired solitary kidney Z90.5 Adrenal cortical adenoma D35.02 Laterality: left DVT prophylaxis Z29.9
== END 2020-05-26 16:44 | disposition home health service (06) | DRG 522 ==
LOC: ED 18:04 → 3E 19:57 → SUATTDRO 19:57 → 3E 21:24